=== PATIENT | male | born 1990 | race African-American/Black ===

== ENCOUNTER 2023-10-29 04:02 | Emergency (ER) | payer MEDICAID ==
[~2023-10-29] VITALS: Ht 172.7 cm; Wt 93.0 kg
[2023-10-29] MEDS ORDERED: CEPH500T PO (05:26)
[2023-10-29 06:03] VITALS: BP 129/62; PULSE 65; RESP 20; TEMP 98; O2SAT 99
== END 2023-10-29 06:23 | disposition home or self-care (01) ==
LOC: ER 04:02
DX: J32.9 Chronic sinusitis, unspecified (principal); R51.9 Headache, unspecified